=== PATIENT | male | born 1990 | race Caucasian/White ===

== ENCOUNTER 2020-11-26 19:33 | Emergency (ER) | payer MEDICAID ==
[~2020-11-26] VITALS: Ht 177.8 cm; Wt 81.6 kg
[2020-11-26 19:40] VITALS: BP 142/86
--- NOTE | 2020-11-26 19:45 | NUR ---
ED Nurse Note: Patient came to the ED from home complaining of right foot 2nd digit pain redness and swelling. Patient reports that he jammed right foot in the door. Pain 10/10. Denies taking any medication for pain.
[2020-11-26] MEDS ORDERED: Cephalexin 250mg/5ml Susp 100mL Bottle ORAL ONE (20:00)
[2020-11-26] MEDS ORDERED: Ketorolac 30mg Inj IM ONE (20:00)
--- NOTE | 2020-11-26 20:02 | Emergency Room Report ---
History of Present Illness General Chief Complaint: Lower Extremity Injury Source: Patient Present Illness HPI 30-year-old male with no significant past medical history here complaining of right third toe pain after he kicked a door 2 nights ago. 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 Cellulitis right third toe noted. Has range of motion. Denies any tingling numbness. Bony tenderness noted. Has not taken medication for symptom relief. Is up-to-date with tetanus shot. Denies all other injuries. Is able to ambulate. 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 COVID-19 Screening: Negative COVID-19 COVID-19 Testing Source: [employer] Patient History Past Medical History: see triage record Past Surgical History: none Pertinent Family History: none Immunizations: UTD Reviewed Nursing Documentation: PMH: Agreed; PSxH: Agreed Nursing Documentation-PMH Past Medical History: No Stated History Review of Systems All Other Systems: negative except mentioned in HPI Physical Exam Vital Signs Date Time Temp Pulse Resp B/P (MAP) Pulse Ox O2 Delivery O2 Flow Rate FiO2 11/26/20 19:40 98.1 100 16 142/86 (104) 94 Room Air Sp02 EP Interpretation: reviewed, normal General Appearance: no apparent distress, alert, GCS 15, non-toxic Head: normocephalic, atraumatic Eyes: bilateral eye normal inspection, bilateral eye PERRL ENT: hearing grossly normal, no angioedema, normal voice Neck: supple Respiratory: no retraction, no accessory muscle use Cardiovascular #1: no edema Cardiovascular #2: 2+ dorsalis pedis (R), 2+ dorsalis pedis (L) Gastrointestinal: soft Musculoskeletal: back normal, swelling - Right third toe with bony tenderness and cellulitic Neurologic: alert, motor strength/tone normal, oriented x3, sensory intact, responsive, speech normal Psychiatric: judgement/insight normal, memory normal, mood/affect normal, no suicidal/homicidal ideation Skin: other - Cellulitis right third toe Lymphatic: no adenopathy Procedures Splinting Splinting : Consent: Verbal Location: Right third and fourth toes Pre-Made Type: post op shoe, delbert tape Pre-Proc Neuro Vasc Exam: normal Post-Proc Neuro Vasc Exam: normal Patient Tolerated: Well Complications: None Medical Decision Making PA Attestation All diagnoses and treatment plans were reviewed and discussed with my supervising physician Dr. Gonzalez Diagnostic Impression: Primary Impression: Cellulitis, toe Additional Impression: Toe contusion ER Course 30-year-old male with no significant past medical history here complaining of right third toe pain after he kicked a door 2 nights ago. 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 C ellulitis right third toe noted. Has range of motion. Denies any tingling numbness. Bony tenderness noted. Has not taken medication for symptom relief. Is up-to-date with tetanus shot. Denies all other injuries. Is able to ambulate. Ddx considered but are not limited to : Cellulitis, toe fracture, contusion, sprain, osteomyelitis , superficial infection, abscess Vital signs: are WNL, pt. is afebrile H&PE are most consistent with:cellulitis toe, toe contusion ORDERS: Keflex, Motrin ED INTERVENTIONS: Toradol IM, Keflex p.o., delbert tape, postop shoe applied DISCHARGE: At this time pt. is stable for d/c to home. Will provide printed patient care instructions, and any necessary prescriptions. Care plan and follow up instructions have been discussed with the patient prior to discharge. Take medication as directed, follow primary care provider, if worsening symptoms return to the emergency room Other X-Ray Diagnostic Results Other X-Ray Diagnostic Results : X-Ray ordered: right toe # of Views/Limited Vs Complete: 2 View Indication: Pain EP Interpretation: Yes ELAINE Xray: Interpretation reviewed, by supervising MD, and agrees with findings. Interpretation: no dislocation, no soft tissue swelling, no fractures Impression: No acute disease Electronically Signed by: Palma Amaral PA-C Last Vital Signs Date Time Temp Pulse Resp B/P (MAP) Pulse Ox O2 Delivery O2 Flow Rate FiO2 11/26/20 19:40 98.1 100 16 142/86 (104) 94 Room Air Disposition: HOME, SELF-CARE Condition: Stable Patient Instructions: Cellulitis, [id number], Contusion, [id number] Additional Instructions: Take medication as directed, follow primary care provider, if worsening symptom return to the emergency room Palma Chase Nov 26, 2020 20:02
--- NOTE | 2020-11-26 20:13 | NUR ---
Keflex suspension not given, keflex po well tolerated.
[2020-11-26] MEDS ORDERED: Cephalexin 500mg cap ORAL ONE (20:15)
[2020-11-26] MEDS ORDERED: CEPHALEXIN500 MG ORAL (20:20)
[2020-11-26] MEDS ORDERED: IBUPROFEN600 M1 ORAL (20:20)
--- NOTE | 2020-11-26 20:29 | NUR ---
ER DISCHARGE NOTE: Patient is cleared to be discharged per ERMD, pt is aox4, on room air, with stable vital signs. pt was given dc and prescription instructions, pt was able to verbalize understanding, pt id band removed. pt is able to ambulate with steady gait. pt took all belongings.
--- NOTE | 2020-11-27 14:35 | Diagnostic Imaging Report ---
Indication: Pain, trauma Technique: 3 views of the right toes Comparison: none Findings: No acute fracture. No dislocation. Joint spaces are preserved Impression: Negative
== END 2020-11-26 20:30 | disposition home or self-care (01) ==
LOC: EMR 19:45
DX: S90.122A Contusion of left lesser toe(s) without damage to nail, initial encounter (principal); L03.032 Cellulitis of left toe; W22.8XXA Striking against or struck by other objects, initial encounter; Y93.9 Activity, unspecified; Y92.9 Unspecified place or not applicable
CPT/HCPCS: 73660; 96372; J1885; Z7502; 99283